=== PATIENT | female | born 1970 ===

== ENCOUNTER 2022-10-27 15:25 | Emergency (ER) | payer MEDICAID ==
[~2022-10-27] VITALS: Ht 162.6 cm; Wt 95.5 kg
[2022-10-27 16:15] LABS: Urine Specific Gravity 1.008 (1.001-1.035)
[2022-10-27 16:16] LABS: Urine Blood Negative /uL (Negative)
[2022-10-27 16:32] LABS: Basophils # (auto) 0.1 10 ^3/uL (0-0.2); Basophils % (auto) 0.8 % (0.0-2.0); Eosinophils # (auto) 0.2 10 ^3/uL (0-0.8); Eosinophils % (auto) 2.8 % (0.0-7.0); Hematocrit 41.9 % (36.0-46.0); Hemoglobin 14.3 g/dL (12.2-16.2); Lymphocytes # (auto) 2.3 10 ^3/uL (0.4-5.4); Lymphocytes % (auto) 34.4 % (10.0-50.0); Mean Corpuscular Hgb Conc. 34.2 g/dL (32.0-36.0); Monocytes # (auto) 0.4 10 ^3/uL (0-1.3); Monocytes % (auto) 6.5 % (0.0-12.0); Neutrophils # (auto) 3.8 10 ^3/uL (1.6-8.6); Neutrophils % (auto) 55.5 % (37.0-80.0); Nucleated Red Blood Cells % 0.1 %; Red Blood Cells 5.11 10^6/uL (4.0-5.20); Red Cell Distribution Width 15.5 % (11.8-14.3); White Blood Cell 6.8 10^3/uL (4.4-10.8)
[2022-10-27 16:51] LABS: Albumin 4.1 g/dL (3.4-5.0); BUN/Creatinine Ratio 18.3; Calcium 9.4 mg/dL (8.5-10.1); Potassium 4.4 mmol/L (3.5-5.1)
[2022-10-27 16:54] LABS: Bilirubin, Total 0.4 mg/dL (0.2-1.0); Total Protein 7.3 g/dL (6.4-8.2)
[2022-10-27] MEDS ORDERED: ALUM & MAG HYDROX-SIMETH LIQ(MAALOX) 30 ML PO ONE (17:15)
[2022-10-27] MEDS ORDERED: LIDOCAINE VISCOUS 2% 15ML UD PO ONE (17:15)
[2022-10-27] MEDS ORDERED: OMEP-263 PO (19:28)
[2022-10-27 19:45] VITALS: BP 127/81
== END 2022-10-27 19:49 | disposition home or self-care (01) ==
LOC: ER 15:25
DX: R07.89 Other chest pain (principal); K21.9 Gastro-esophageal reflux disease without esophagitis
CPT/HCPCS: 36415; 71046; 80053; 81003; 84484; 85025; 93005